=== PATIENT | male | born 1955 | race African-American/Black ===

== ENCOUNTER 2020-07-26 14:53 | Emergency (ER) | payer OTHER ==
[~2020-07-26] VITALS: Ht 188 cm; Wt 135.4 kg
[2020-07-26 15:13] VITALS: BP 137/83
[2020-07-26] MEDS ORDERED: ondansetron 4mg rapidly disintigrating tab PO ONE (15:55)
[2020-07-26] MEDS ORDERED: HYDROcodone/acetaminophen 5mg/325mg tablet PO ONE (15:55)
[2020-07-26] MEDS ORDERED: ONDA4TAB6 PO (15:56)
[2020-07-26] MEDS ORDERED: HYDR-4383 PO (15:56)
== END 2020-07-26 16:29 | disposition home or self-care (01) ==
LOC: ER 14:54
DX: S82.831A Other fracture of upper and lower end of right fibula, initial encounter for closed fracture (principal); Z79.899 Other long term (current) drug therapy; X58.XXXA Exposure to other specified factors, initial encounter; Y93.89 Activity, other specified; Y92.89 Other specified places as the place of occurrence of the external cause; Y99.8 Other external cause status
CPT/HCPCS: 73610; 99283